=== PATIENT | male | born 1950 | race Caucasian/White ===

== ENCOUNTER 2016-10-19 07:21 | Inpatient (IN) | payer BC, MEDICARE ==
[2016-10-19] MEDS ORDERED: Diltiazem 25 MG/5 ML SDV IVPUSH ONE (07:38)
[2016-10-19] MEDS ORDERED: Aspirin 81 MG Tab.Chew PO ONE (07:39)
--- NOTE | 2016-10-19 07:43 | EDM.PDOC ---
ED HPI GENERAL MEDICAL PROBLEM - General Chief Complaint: Chest Pain Stated Complaint: CHEST PAIN Time Seen by Provider: 10/19/16 07:37 Source of Information: Reports: Patient History Limitations: Reports: No Limitations - History of Present Illness INITIAL COMMENTS - FREE TEXT/NARRATIVE: 66-year-old male presents the ED with diffuse central chest pain radiating through to his back the neck and across the upper shoulders posteriorly. States it came on about 0600 hours this morning and has persisted. He has not had any similar recurrences. He has known coronary disease requiring one stent in 2009. He remains on Plavix at this time. Denies any shortness of breath. Denies feeling lightheaded or dizzy. No previous episodes of atrial fib to his knowledge. Monitor reveals a to fibrillation with a rate of anywhere between 90 and 160 per minute. Onset: Today Onset Date: 10/19/16 Onset Time: 06:00 Duration: Hour(s): Location: Reports: Chest (With pain radiating to to the nape of the neck and upper back.) Quality: Reports: Ache, Pressure, Other (Radiating through to nape of neck and across the upper shoulders bilaterally.) Severity: Moderate Improves with: Reports: None Worsens with: Reports: None Context: Denies: Activity, Exercise, Lifting, Sick Contact, Trauma, Other Associated Symptoms: Reports: Chest Pain. 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: Other (see below) (None) Middle Chest Pain Score (Numeric/FACES): 8 - Related Data Allergies Allergy/AdvReac Type Severity Reaction Status Date / Time acetaminophen [From Tylenol] Allergy Nausea Verified 10/19/16 07:31 latex Allergy Hives Verified 10/19/16 07:31 peanut Allergy Hives Verified 10/19/16 07:31 Home Meds: Home Meds Albuterol [Ventolin HFA] 2 puff INH Q4H PRN 10/19/16 [History] Aspirin 81 mg PO DAILY 10/19/16 [History] Clopidogrel [Plavix] 75 mg PO DAILY 10/19/16 [History] Fluticasone/Salmeterol [Advair Diskus 250-50] 1 puff INH BID 10/19/16 [History] Metoprolol Succinate 25 mg PO DAILY 10/19/16 [History] Mometasone Furoate [Nasonex Worth] 1 spray BRIDGER DAILY 10/19/16 [History] Multivitamin [Multiple Vitamins] 1 each PO DAILY 10/19/16 [History] Pantoprazole [ProTONIX] 40 mg PO DAILY 10/19/16 [History] Valsartan/Hydrochlorothiazide [Diovan Hct 160-12.5 mg Tab] 1 each PO DAILY 10/19 [History] atorvaSTATin [Lipitor] 20 mg PO MOFR 10/19/16 [History] metFORMIN HCl [Metformin HCl] 1,000 mg PO BID 10/19/16 [History] predniSONE 10 mg PO BEDTIME 10/19/16 [History] predniSONE 20 mg PO WITHBREAKFAST 10/19/16 [History] Past Medical History HEENT History: Reports: Other (See Below) Other HEENT History: wears glasses Cardiovascular History: Reports: High Cholesterol, Hypertension Respiratory History: Reports: Asthma Musculoskeletal History: Reports: Other (See Below) Other Musculoskeletal History: polymyalgia Endocrine/Metabolic History: Reports: Diabetes, Type II - Past Surgical History HEENT Surgical History: Reports: Naso-Sinus Surgery Cardiovascular Surgical History: Reports: Coronary Artery Stent GI Surgical History: Reports: Cholecystectomy Social & Family History - Tobacco Use Smoking Status *Q: Never Smoker - Caffeine Use Caffeine Use: Reports: Soda - Recreational Drug Use Recreational Drug Use: No - Living Situation & Occupation Living situation: Reports: Occupation: Employed ED ROS GENERAL - Review of Systems Review Of Systems: See Below Constitutional: Denies: Fever, Chills, Malaise, Weakness, Fatigue, Decreased Appetite, Weight Loss HEENT: Reports: No Symptoms Respiratory: Denies: Shortness of Breath, Wheezing, Pleuritic Chest Pain, Cough Cardiovascular: Reports: Chest Pain (See history present illness a), Blood Pressure Problem, Palpitations (Aware of a few palpitations this morning.). Denies: Claudication, Dyspnea on Exertion, Edema, Lightheadedness, Orthopnea ( Mild hypertension) Endocrine: Reports: No Symptoms GI/Abdominal: Reports: No Symptoms : Reports: No Symptoms Musculoskeletal: Reports: Neck Pain, Shoulder Pain (Appreciates a pressure limit of his neck and across the upper shoulders bilaterally) Skin: Reports: No Symptoms Neurological: Reports: No Symptoms Psychiatric: Reports: No Symptoms ED EXAM, GENERAL - Physical Exam Exam: See Below Exam Limited By: No Limitations General Appearance: Alert, WD/WN, Anxious, Mild Distress Eye Exam: Bilateral Eye: Normal Inspection Throat/Mouth: Normal Inspection, Normal Lips, Normal Oropharynx Head: Atraumatic, Normocephalic Neck: Normal Inspection, Supple, Non-Tender, Full Range of Motion. No: Carotid Bruit, Lymphadenopathy (L), Lymphadenopathy (R), Thyromegaly Respiratory/Chest: No Respiratory Distress, Lungs Clear, Normal Breath Sounds, No Accessory Muscle Use, Chest Non-Tender Cardiovascular: No Edema, No Gallop, No JVD, No Murmur, No Rub, Irregularly Irregular (Rate as high as 160 per minute. Monitor reveals atrial fibrillation) Peripheral Pulses: 1+: Posterior Tibial (L), Posterior Tibial (R), Dorsalis Pedis (L), Dorsalis Pedis (R) GI/Abdominal: Normal Bowel Sounds, Soft, Non-Tender, No Organomegaly, No Distention, No Abnormal Bruit (Male) Exam: No Hernia Extremities: Normal Inspection, Normal Range of Motion, Non-Tender, No Pedal Edema, Normal Capillary Refill Neurological: Alert, Oriented, CN II-XII Intact, Normal Cognition, Normal Gait Psychiatric: Normal Affect, Normal Mood Skin Exam: Warm, Dry, Intact, Normal Color, No Rash EKG INTERPRETATION EKG Date: 10/19/16 Time: 07:30 Rhythm: a-fib (Rate 90-160 per minute) Rate (beats/min): 126 Angie: normal P-wave: absent QRS: normal ST-T: depressed (Is mild ST segment depression from V3 to V6 also noted in leads one and 2 and likely in lead 3. This could represent an early repolarization pattern but cannot rule out diffuse ischemia.) QT: normal Course - Vital Signs Last Recorded V/S: Last Vital Signs Temp 36.1 C 10/19/16 07:27 Pulse 128 H 10/19/16 07:27 Resp 18 10/19/16 07:27 BP 169/93 H 10/19/16 07:27 Pulse Ox 99 10/19/16 07:27 - Orders/Labs/Meds Orders: Active Orders 24 hr Category Date Time Status Admission Status [Patient Status] [ADT] Routine ADT 10/19/16 12:47 Ordered EKG Documentation Completion [RC] STAT Care 10/19/16 07:40 Active EKG Documentation Completion [RC] STAT Care 10/19/16 11:03 Active Oxygen Therapy [RC] ASDIRECTED Care 10/19/16 07:41 Active Peripheral IV Care [RC] . DIRECTED Care 10/19/16 12:49 Ordered Diltiazem 125 mg Med 10/19/16 07:49 Active Sodium Chloride 0.9% [Normal Saline] 100 ml IV NOW Sodium Chloride 0.9% [Normal Saline] 1,000 ml Med 10/19/16 07:45 Active IV ASDIRECTED Sodium Chloride 0.9% [Saline Flush] Med 10/19/16 12:47 Ordered 10 ml FLUSH ASDIRECTED PRN Peripheral IV Insertion Adult [OM.PC] Stat Oth 10/19/16 12:47 Ordered Medication Orders Sodium Chloride (Normal Saline) 1,000 mls @ 100 mls/hr IV ASDIRECTED EWELINA Last Admin: 10/19/16 07:42 Dose: 100 mls/hr Diltiazem HCl 125 mg/ Sodium (Chloride) 125 mls @ 10 mls/hr IV NOW STA PRN Reason: 10 MG/HR Stop: 10/19/16 20:18 Last Admin: 10/19/16 08:20 Dose: 10 mg/hr, 10 mls/hr Labs: Laboratory Tests 10/19/16 10/19/16 10/19/16 Range/Units 07:35 07:35 07:35 WBC 11.47 H (4.23-9.07) K/mm3 RBC 4.64 (4.63-6.08) M/mm3 Hgb 14.2 (13.7-17.5) gm/L Hct 41.9 (40.1-51.0) % MCV 90.3 (79.0-92.2) fl MCH 30.6 (25.7-32.2) pg MCHC 33.9 (32.2-35.5) g/dl RDW Std Deviation 46.2 H (35.1-43.9) fL Plt Count 312 (163-337) K/mm3 MPV 9.3 L (9.4-12.3) fl Neutrophils % (Manual) 83 H (40-60) % Band Neutrophils % Not Reportable Lymphocytes % (Manual) 11 L (20-40) % Monocytes % (Manual) 6 (2-10) % Eosinophils % (Manual) Not Reportable Basophils % (Manual) Not Reportable Platelet Estimate Adequate RBC Morph Comment Normal PT 10.7 (8.0-13.0) SECONDS INR 0.98 Sodium 137 (136-145) mEq/L Potassium 4.2 (3.5-5.1) mEq/L Chloride 99 (98-107) mEq/L Carbon Dioxide 25 (21-32) mEq/L Anion Gap 17.2 H (5-15) BUN 24 H (7-18) mg/dL Creatinine 1.2 (0.7-1.3) mg/dL Est Cr Clr Drug Dosing 62.16 mL/min Estimated GFR (MDRD) > 60 (>60) mL/min BUN/Creatinine Ratio 20.0 H (14-18) Glucose 305 H (80-115) mg/dL Calcium 9.4 (8.5-10.1) mg/dL Magnesium 2.0 (1.8-2.4) mg/dl Total Bilirubin 0.7 (0.2-1.0) mg/dL AST 13 L (15-37) U/L ALT 41 (16-63) U/L Alkaline Phosphatase 38 L (46-116) U/L CK-MB (CK-2) 3.6 (0-3.6) ng/ml Troponin I 0.019 (0.00-0.056) ng/mL Total Protein 7.4 (6.4-8.2) g/dl Albumin 3.7 (3.4-5.0) g/dl Globulin 3.7 gm/dL Albumin/Globulin Ratio 1.0 (1-2) TSH 3rd Generation 0.837 (0.358-3.74) uIU/mL 10/19/16 Range/Units 11:02 WBC (4.23-9.07) K/mm3 RBC (4.63-6.08) M/mm3 Hgb (13.7-17.5) gm/L Hct (40.1-51.0) % MCV (79.0-92.2) fl MCH (25.7-32.2) pg MCHC (32.2-35.5) g/dl RDW Std Deviation (35.1-43.9) fL Plt Count (163-337) K/mm3 MPV (9.4-12.3) fl Neutrophils % (Manual) (40-60) % Band Neutrophils % Lymphocytes % (Manual) (20-40) % Monocytes % (Manual) (2-10) % Eosinophils % (Manual) Basophils % (Manual) Platelet Estimate RBC Morph Comment PT (8.0-13.0) SECONDS INR Sodium (136-145) mEq/L Potassium (3.5-5.1) mEq/L Chloride (98-107) mEq/L Carbon Dioxide (21-32) mEq/L Anion Gap (5-15) BUN (7-18) mg/dL Creatinine (0.7-1.3) mg/dL Est Cr Clr Drug Dosing mL/min Estimated GFR (MDRD) (>60) mL/min BUN/Creatinine Ratio (14-18) Glucose (80-115) mg/dL Calcium (8.5-10.1) mg/dL Magnesium (1.8-2.4) mg/dl Total Bilirubin (0.2-1.0) mg/dL AST (15-37) U/L ALT (16-63) U/L Alkaline Phosphatase (46-116) U/L CK-MB (CK-2) 3.0 (0-3.6) ng/ml Troponin I 0.040 (0.00-0.056) ng/mL Total Protein (6.4-8.2) g/dl Albumin (3.4-5.0) g/dl Globulin gm/dL Albumin/Globulin Ratio (1-2) TSH 3rd Generation (0.358-3.74) uIU/mL Meds: Medications Generic Name Dose Route Start Last Admin Trade Name Freq PRN Reason Stop Dose Admin Sodium Chloride 1,000 mls @ 100 mls/hr 10/19/16 07:45 10/19/16 07:42 Normal Saline IV 100 mls/hr ASDIRECTED EWELINA Administration Diltiazem HCl 125 mg/ Sodium 125 mls @ 10 mls/hr 10/19/16 07:49 10/19/16 08: 20 Chloride IV 10/19/16 20:18 10 mg/hr NOW STA 10 mls/hr 10 MG/HR Administration Discontinued Medications Generic Name Dose Route Start Last Admin Trade Name Freq PRN Reason Stop Dose Admin Aspirin 324 mg 10/19/16 07:39 10/19/16 07:47 Aspirin PO 10/19/16 07:40 243 mg ONETIME ONE Administration Diltiazem HCl 10 mg 10/19/16 07:38 10/19/16 07:45 Diltiazem IVPUSH 10/19/16 07:39 10 mg ONETIME ONE Administration Diltiazem HCl 180 mg 10/19/16 11:25 10/19/16 11:38 Cardizem Cd PO 10/19/16 11:26 180 mg ONETIME ONE Administration Diltiazem HCl 125 mg/ Sodium 125 mls @ 10 mls/hr 10/19/16 07:45 Chloride IV ASDIRECTED EWELINA 10 MG/HR Ibutilide Fumarate 1 mg/ 60 mls @ 300 mls/hr 10/19/16 08:25 10/19/16 08:55 Sodium Chloride IV 10/19/16 08:36 300 mls/hr ONETIME ONE Administration Ibutilide Fumarate 1 mg/ 60 mls @ 300 mls/hr 10/19/16 09:25 10/19/16 09:58 Sodium Chloride IV 10/19/16 09:36 300 mls/hr ONETIME ONE Administration - Radiology Interpretation Free Text/Narrative:: 66-year-old male presents the ED with heaviness pressure sensation in the central chest radiating through to the nape of his neck and across the posterior aspect of both shoulders. Aware of this discomfort about 0600 hours this morning. Aware of a few palpitations in his chest. No lightheadedness no shortness of breath. No previous similar episodes. Patient has a history of coronary disease requiring one stent placement in 2009. He remains on Plavix at this time. Plan ECG confirms it fibrillation with a rate of 92 160 per minute. There is diffuse slight ST segment depression V3 to V6 one and leads 2 and possibly lead 3. Plan one view chest x-ray. He'll receive IV normal saline at 100 mils per hour. Cardizem 10 mg IV bolus and drip started at 10 mg per hour. Routine labs of course to include cardiac markers and BNP. - Re-Assessments/Exams Free Text/Narrative Re-Assessment/Exam: 10/19/16 08:07 heart rate is improved into the 90s after the 10 mg Cardizem bolus. His chest pain back pain 8 and nape of neck discomfort are completely gone. Cardizem drip is yet to be started. Chest x-ray reveals clear lung glass. Heart is borderline in size. 10/19/16 08:26 labs are back revealing a mildly elevated white count at 11.47 with a left shift of 83% neutrophils and no bands. Hemoglobin is 14.2 hematocrit of 41.9 platelets normal 312,000. Coags are normal. Sodium is 137 potassium is 4.2 anion gap is mildly elevated at 17.2. BUN is 24 glucose is moderately elevated at 305. TSH is normal at 0.837. Troponin is normal at 0.019 CK-MB fraction 3.6. His weight remains around 108 fibrillation. Drip has just been started. Going to the [facility] for converted back to sinus with Corvert. He will receive initial dose of 1 mg intravenously in the minibag over 15 minutes. 10/19/16 09:25 patient failed to convert back to sinus rhythm after the initial dose of Corvert. Will give second dose of 1 mg over 15 minutes IV. He remains in atrial fibrillation with a rate in the 80s cardiac Cardizem drip at 10 mg per hour. 10/19/16 10:30 patient has completed second dose of Corvert IV. He remained in nature fibrillation. He'll be monitored over the next half an hour then will make a decision as to disposition. 10/19/16 11:04 patient appears to be in atrial fibrillation. His rate is in the 60s to 70 range. BP is 120 on 64. We'll repeat his ECG and troponin CK-MB fractions. If his cardiac markers are normal he may be able to go home on oral Cardizem for rate control. 10/19/16 11:23 repeat ECG reveals a fibrillation with a rate of 58-88 per minute. There is early repolarization pattern but again noted in V2 and V3 with no true ST segment elevation to suggest an infarct. Previously noted diffuse ST segment depression in V3 to V6 and lead one has resolved after rate control. Will start him on oral Cardizem 180mg CD mg extended release daily. 10/19/16 11:[address] Hoffmann current hospitalist pediatric oncologist. He is accepted this patient and to the intensive care unit since he is still on a Cardizem drip. Insert is if he remains in atrial fibrillation he will require different anti-coagulation than Pradaxa. Second cardiac markers are slightly elevated as compared to the first. The troponin is now 0.040 and CK-MB fraction is a little lower at 3.0. Therefore unlikely to have experienced any cardiac muscle damage from the rapid rate. 10/19/16 12:49 this will be admitted to the intensive care at this time. He remains in atrial fibrillation with a rate of 74 per minute. BP is 119 on 72. Departure - Departure Time of Disposition: 12:50 Disposition: Admitted As Inpatient 66 Condition: fair Clinical Impression: Atrial fibrillation with RVR, Angina at rest, Volume depletion Forms: ED Department Discharge - My Orders Last 24 Hours: My Active Orders 10/19/16 07:40 EKG Documentation Completion [RC] STAT 10/19/16 07:41 Oxygen Therapy [RC] ASDIRECTED 10/19/16 07:45 Sodium Chloride 0.9% [Normal Saline] 1,000 ml IV ASDIRECTED 10/19/16 07:49 Diltiazem 125 mg Sodium Chloride 0.9% [Normal Saline] 100 ml IV NOW 10/19/16 11:03 EKG Documentation Completion [RC] STAT 10/19/16 12:47 Admission Status [Patient Status] [ADT] Routine Sodium Chloride 0.9% [Saline Flush] 10 ml FLUSH ASDIRECTED PRN Peripheral IV Insertion Adult [OM.PC] Stat 10/19/16 12:49 Peripheral IV Care [RC] . DIRECTED - Assessment/Plan Last 24 Hours: My Active Orders 10/19/16 07:40 EKG Documentation Completion [RC] STAT 10/19/16 07:41 Oxygen Therapy [RC] ASDIRECTED 10/19/16 07:45 Sodium Chloride 0.9% [Normal Saline] 1,000 ml IV ASDIRECTED 10/19/16 07:49 Diltiazem 125 mg Sodium Chloride 0.9% [Normal Saline] 100 ml IV NOW 10/19/16 11:03 EKG Documentation Completion [RC] STAT 10/19/16 12:47 Admission Status [Patient Status] [ADT] Routine Sodium Chloride 0.9% [Saline Flush] 10 ml FLUSH ASDIRECTED PRN Peripheral IV Insertion Adult [OM.PC] Stat 10/19/16 12:49 Peripheral IV Care [RC] . DIRECTED
[2016-10-19] MEDS ORDERED: Diltiazem 125 MG in Sodium Chloride 0.9% 100 ML IV SCH (07:45)
[2016-10-19] MEDS ORDERED: Sodium Chloride 0.9% 1,000 ML IV SCH (07:45)
[2016-10-19] MEDS ORDERED: Diltiazem 125 MG in Sodium Chloride 0.9% 100 ML IV STA (07:49)
--- NOTE | 2016-10-19 10:07 | CR ---
Chest: Portable view of the chest was obtained. Comparison: Previous chest x-ray of 03/27/12 is available, previous chest x-ray of 01/11/12 is also available. Heart size and mediastinum are normal. Lungs are clear. Bony structures are grossly intact. Slight degenerative endplate spurring is seen within the spine. Surgical clips seen within the upper abdomen. Impression: 1. Incidental findings. Nothing acute is identified on portable chest x-ray. Diagnostic code #2
[2016-10-19] MEDS ORDERED: Diltiazem 180 MG Cap.CD PO ONE (11:25)
--- NOTE | 2016-10-19 12:45 | PCM.HP ---
H&P History of Present Illness - General Date of Service: 10/19/16 Admit Problem/Dx: Atrial Fibrillation with RVR and Chest Pain Source of Information: Patient, Family, Provider, RN Notes Reviewed History Limitations: Reports: No Limitations - History of Present Illness Initial Comments - Free Text/Narative: This is a 66 yo pleasant elderly white male with past medical hx/o HTN, HLD, Asthma, PMR, and DM2 who comes in with complaints of chest pain that is pressure -achy like in nature with radiation to neck and shoulder that started about 0600 this am. He denies any previous hx/o it in the past. Patient carries a hx/o CAD for which he received a stent in 2009. He is currently on low dose ASA, Plavix, Statin and BB. His initial work up in ED shows a CBC that fairly remarkable for WBC of 11.47 and Neutrophils or 83%. INR is 0.98. His chemistry is significant for AG of 17.2 , BUN of 24, BS of 305, AST of 13 and Alk Phos of 38. His troponin x 2 are negative. His CXR shows no acute abnormal findings. His EKG shows Atrial fibrillation with a HR of 126 bpm. Patient received initial treatment in ED for rate control before he was sent to the floor for further management. He is full code. Middle Chest Pain Score (Numeric/FACES): 8 - Related Data Allergies/Adverse Reactions: Allergies Allergy/AdvReac Type Severity Reaction Status Date / Time acetaminophen [From Tylenol] Allergy Nausea Verified 10/19/16 07:31 latex Allergy Hives Verified 10/19/16 07:31 peanut Allergy Hives Verified 10/19/16 07:31 Home Medications: Home Meds Albuterol [Ventolin HFA] 2 puff INH Q4H PRN 10/19/16 [History] Aspirin 81 mg PO DAILY 10/19/16 [History] Clopidogrel [Plavix] 75 mg PO DAILY 10/19/16 [History] Fluticasone/Salmeterol [Advair Diskus 250-50] 1 puff INH BID 10/19/16 [History] Metoprolol Succinate 25 mg PO DAILY 10/19/16 [History] Mometasone Furoate [Nasonex [place]] 1 spray BRIDGER DAILY 10/19/16 [History] Multivitamin [Multiple Vitamins] 1 each PO DAILY 10/19/16 [History] Pantoprazole [ProTONIX] 40 mg PO DAILY 10/19/16 [History] Valsartan/Hydrochlorothiazide [Diovan Hct 160-12.5 mg Tab] 1 each PO DAILY 10/19 [History] atorvaSTATin [Lipitor] 20 mg PO MOFR 10/19/16 [History] metFORMIN HCl [Metformin HCl] 1,000 mg PO BID 10/19/16 [History] predniSONE 10 mg PO BEDTIME 10/19/16 [History] predniSONE 20 mg PO WITHBREAKFAST 10/19/16 [History] Past Medical History HEENT History: Reports: Other (See Below) Other HEENT History: wears glasses Cardiovascular History: Reports: High Cholesterol, Hypertension Respiratory History: Reports: Asthma Musculoskeletal History: Reports: Other (See Below) Other Musculoskeletal History: polymyalgia Endocrine/Metabolic History: Reports: Diabetes, Type II - Past Surgical History HEENT Surgical History: Reports: Naso-Sinus Surgery Cardiovascular Surgical History: Reports: Coronary Artery Stent GI Surgical History: Reports: Cholecystectomy Social & Family History - Tobacco Use Smoking Status *Q: Never Smoker - Caffeine Use Caffeine Use: Reports: Soda - Recreational Drug Use Recreational Drug Use: No - Living Situation & Occupation Living situation: Reports: Occupation: Employed H&P Review of Systems - Review of Systems: Review Of Systems: See Below General: Denies: Fever, Chills, Malaise, Weakness, Fatigue HEENT: Reports: No Symptoms Pulmonary: Denies: Shortness of Breath, Wheezing, Pleuritic Chest Pain Cardiovascular: Denies: Chest Pain, Palpitations, Dyspnea on Exertion, Claudication Gastrointestinal: Denies: Abdominal Pain, Constipation, Diarrhea, Decreased Appetite, Nausea, Vomiting Genitourinary: Reports: No Symptoms Musculoskeletal: Reports: No Symptoms Skin: Reports: No Symptoms Psychiatric: Denies: Confusion, Anxiety, Agitation, Hallucinations Neurological: Denies: Confusion, Dizziness, Seizure, Syncope, Difficulty Walking , Weakness, Gait Disturbance Hematologic/Lymphatic: Reports: No Symptoms Immunologic: Reports: No Symptoms Exam - Exam Exam: See Below - Vital Signs Vital Signs: Last Vital Signs Temp 36.1 C 10/19/16 07:27 Pulse 128 H 10/19/16 07:27 Resp 18 10/19/16 07:27 BP 169/93 H 10/19/16 07:27 Pulse Ox 99 10/19/16 07:27 Weight: 72.575 kg - Exam General: Alert, Oriented, Cooperative. No: Mild Distress HEENT: Conjunctiva Clear, EACs Clear, EOMI, Hearing Intact, Mucosa Moist & [place] , Nares Patent, Normal Nasal Septum, Posterior Pharynx Clear, Pupils Equal, Pupils Reactive, TMs Clear Neck: Supple, Trachea Midline Lungs: Clear to Auscultation, Normal Respiratory Effort Cardiovascular: Regular Rate, Regular Rhythm Abdomen: Normal Bowel Sounds, Soft. No: Organomegaly (Male) Exam: Deferred Rectal (Males) Exam: Deferred Back Exam: Normal Inspection, Decreased Range of Motion Extremities: Normal Inspection, Normal Pulses Peripheral Pulses: 2+: Posterior Tibial (L), Posterior Tibial (R), Dorsalis Pedis (L), Dorsalis Pedis (R) Skin: Warm, Dry, Intact Neuro Extensive - Mental Status: Oriented x3, Normal Cognition, Memory Intact Neuro Extensive - Motor, Sensory, Reflexes: CN II-XII Intact, Normal Gait Psychiatric: Alert, Normal Affect, Normal Mood - Patient Data Lab Results last 24 hrs: Laboratory Results - last 24 hr 10/19/16 10/19/16 10/19/16 Range/Units 07:35 07:35 07:35 WBC 11.47 H (4.23-9.07) K/mm3 RBC 4.64 (4.63-6.08) M/mm3 Hgb 14.2 (13.7-17.5) gm/L Hct 41.9 (40.1-51.0) % MCV 90.3 (79.0-92.2) fl MCH 30.6 (25.7-32.2) pg MCHC 33.9 (32.2-35.5) g/dl RDW Std Deviation 46.2 H (35.1-43.9) fL Plt Count 312 (163-337) K/mm3 MPV 9.3 L (9.4-12.3) fl Neutrophils % (Manual) 83 H (40-60) % Band Neutrophils % Not Reportable Lymphocytes % (Manual) 11 L (20-40) % Monocytes % (Manual) 6 (2-10) % Eosinophils % (Manual) Not Reportable Basophils % (Manual) Not Reportable Platelet Estimate Adequate RBC Morph Comment Normal PT 10.7 (8.0-13.0) SECONDS INR 0.98 Sodium 137 (136-145) mEq/L Potassium 4.2 (3.5-5.1) mEq/L Chloride 99 (98-107) mEq/L Carbon Dioxide 25 (21-32) mEq/L Anion Gap 17.2 H (5-15) BUN 24 H (7-18) mg/dL Creatinine 1.2 (0.7-1.3) mg/dL Est Cr Clr Drug Dosing 62.16 mL/min Estimated GFR (MDRD) > 60 (>60) mL/min BUN/Creatinine Ratio 20.0 H (14-18) Glucose 305 H (80-115) mg/dL Calcium 9.4 (8.5-10.1) mg/dL Magnesium 2.0 (1.8-2.4) mg/dl Total Bilirubin 0.7 (0.2-1.0) mg/dL AST 13 L (15-37) U/L ALT 41 (16-63) U/L Alkaline Phosphatase 38 L (46-116) U/L CK-MB (CK-2) 3.6 (0-3.6) ng/ml Troponin I 0.019 (0.00-0.056) ng/mL Total Protein 7.4 (6.4-8.2) g/dl Albumin 3.7 (3.4-5.0) g/dl Globulin 3.7 gm/dL Albumin/Globulin Ratio 1.0 (1-2) TSH 3rd Generation 0.837 (0.358-3.74) uIU/mL 10/19/16 Range/Units 11:02 WBC (4.23-9.07) K/mm3 RBC (4.63-6.08) M/mm3 Hgb (13.7-17.5) gm/L Hct (40.1-51.0) % MCV (79.0-92.2) fl MCH (25.7-32.2) pg MCHC (32.2-35.5) g/dl RDW Std Deviation (35.1-43.9) fL Plt Count (163-337) K/mm3 MPV (9.4-12.3) fl Neutrophils % (Manual) (40-60) % Band Neutrophils % Lymphocytes % (Manual) (20-40) % Monocytes % (Manual) (2-10) % Eosinophils % (Manual) Basophils % (Manual) Platelet Estimate RBC Morph Comment PT (8.0-13.0) SECONDS INR Sodium (136-145) mEq/L Potassium (3.5-5.1) mEq/L Chloride (98-107) mEq/L Carbon Dioxide (21-32) mEq/L Anion Gap (5-15) BUN (7-18) mg/dL Creatinine (0.7-1.3) mg/dL Est Cr Clr Drug Dosing mL/min Estimated GFR (MDRD) (>60) mL/min BUN/Creatinine Ratio (14-18) Glucose (80-115) mg/dL Calcium (8.5-10.1) mg/dL Magnesium (1.8-2.4) mg/dl Total Bilirubin (0.2-1.0) mg/dL AST (15-37) U/L ALT (16-63) U/L Alkaline Phosphatase (46-116) U/L CK-MB (CK-2) 3.0 (0-3.6) ng/ml Troponin I 0.040 (0.00-0.056) ng/mL Total Protein (6.4-8.2) g/dl Albumin (3.4-5.0) g/dl Globulin gm/dL Albumin/Globulin Ratio (1-2) TSH 3rd Generation (0.358-3.74) uIU/mL Result Diagrams: 10/19/16 07:35 10/19/16 07:35 EKG INTERPRETATION EKG Date: 10/19/16 Time: 07:28 Rhythm: a-fib Rate (beats/min): 126 EKG Interpretation Comments: Diffuse mild ST depression and early repolarization vs ischemia *Q Meaningful Use (ADM) - VTE *Q VTE Criteria *Q: - Stroke *Q Stroke Criteria *Q: - AMI *Q AMI Criteria *Q: Problem List Initiated/Reviewed/Updated: Yes Orders Last 24hrs: Active Orders 24 hr Category Date Time Status EKG Documentation Completion [RC] STAT Care 10/19/16 07:40 Active EKG Documentation Completion [RC] STAT Care 10/19/16 11:03 Active Oxygen Therapy [RC] ASDIRECTED Care 10/19/16 07:41 Active Diltiazem 125 mg Med 10/19/16 07:49 Active Sodium Chloride 0.9% [Normal Saline] 100 ml IV NOW Sodium Chloride 0.9% [Normal Saline] 1,000 ml Med 10/19/16 07:45 Active IV ASDIRECTED Medication Orders Sodium Chloride (Normal Saline) 1,000 mls @ 100 mls/hr IV ASDIRECTED EWELINA Last Admin: 10/19/16 07:42 Dose: 100 mls/hr Diltiazem HCl 125 mg/ Sodium (Chloride) 125 mls @ 10 mls/hr IV NOW STA PRN Reason: 10 MG/HR Stop: 10/19/16 20:18 Last Admin: 10/19/16 08:20 Dose: 10 mg/hr, 10 mls/hr Assessment/Plan Comment:: Assessment/Plan: Acute: New Onset of Atrial Fibrillation with RVR - HR in the 90-160s - No similar episode in the past - Responded to Cardizem - Failed attempt to convert him with corvert x 2 in ED - [id number] Score is 4 (4% Yearly Risk of Stroke) w/o Anticoagulation - Offered Warfarin vs DOACs, agreed to eliquis - No recent or hx/o GI, Neurologic, Spinal or Any kind of Major Bleed - HAS BLED Score: 3 points (at high risk for major bleeding) Chest Pain - Likely angina induced by uncontrolled HR from Atrial Fibrillation - He does not chronic chest pain or angina - Troponin x 2 both negative - EKG shows no acute ST-T wave changes - He is now symptom free - He carries a hx/o CAD with stent x1 in 2010: He is on BB, ASA/Plavix and Statin Chronic: HTN HLD CAD/NC S/p stent x 1 in 2009 Asthma PMR DM2 Plan: Admit to ICU Resume Home Meds Thyroid Panel Will change home dose Metoprolol 25 mg po to BID Start Cardizem 180 mg po Daily in AM Heparin 5000 units SubQ x1 then start elqiuis 5 mg po at 2100 tonight for stroke /dvt prophylaxis Will d/c Plavix and keep ASA since his stent placement was 6-7 years ago Repeat EKG in AM SW/CM for d/c planning Code Status: 1
[2016-10-19] MEDS ORDERED: Sodium Chloride 0.9% 10 ML Syringe FLUSH PRN (12:47)
[2016-10-19] MEDS ORDERED: Albuterol 6.7 GM Inhaler INH PRN (14:30)
[2016-10-19] MEDS ORDERED: Metoprolol Tartrate 5 MG/5 ML SDV IVPUSH PRN (15:08)
[2016-10-19] MEDS ORDERED: hydrALAZINE 20 MG/ML SDV IVPUSH PRN (15:08)
[2016-10-19] MEDS ORDERED: Acetaminophen/HYDROcodone 325-5 MG Tab PO PRN (15:12)
[2016-10-19] MEDS ORDERED: Temazepam 15 MG Cap PO PRN (15:12)
[2016-10-19] MEDS ORDERED: Acetaminophen 325 MG Tab PO PRN (15:12)
[2016-10-19] MEDS ORDERED: LORazepam 2 MG/ML MDV IV PRN (15:12)
[2016-10-19] MEDS ORDERED: Ondansetron 4 MG/2 ML SDV IV PRN (15:12)
[2016-10-19] MEDS ORDERED: Bisacodyl 5 MG Tab PO PRN (15:12)
[2016-10-19] MEDS ORDERED: Polyethylene Glycol 3350 Powder 17 GM Packet PO PRN (15:12)
[2016-10-19] MEDS ORDERED: Promethazine 12.5 MG in Sodium Chloride 0.9% 50 ML IV PRN (15:12)
[2016-10-19] MEDS ORDERED: HYDROmorphone 0.5 MG/0.5 ML Syringe IVPUSH PRN (15:12)
[2016-10-19] MEDS ORDERED: Albuterol/Ipratropium 3.0-0.5 MG/3 ML Neb Soln NEB PRN (15:12)
[2016-10-19] MEDS ORDERED: Docusate Sodium 100 MG Cap PO PRN (15:12)
[2016-10-19] MEDS ORDERED: Heparin Sodium 5,000 Units/ML Vial IVPUSH ONE (15:18)
[2016-10-19] MEDS: Metoprolol Succinate 25 MG Tab.ER PO SCH (20:04)
[2016-10-19] MEDS: metFORMIN 500 MG Tab PO SCH (20:10)
[2016-10-19] MEDS: Fluticasone/Salmeterol 250-50 MCG Inhalation Powder 14/Diskus INH SCH (20:52)
[2016-10-19] MEDS ORDERED: Apixaban 5 MG Tab PO SCH (21:00)
[2016-10-19] MEDS ORDERED: predniSONE 10 MG Tab PO SCH (21:00)
--- NOTE | 2016-10-19 22:00 | PCM.SN ---
- Free Text/Narrative Note: Patient converted to sinus rhythm with most recent ekg taken at 21:44. We will hold off eliquis and cardizem in am. Continue Metoprolol 25 mg po BID. If he continues to remain in SR, he is likely to leave early in am.
[2016-10-20] MEDS ORDERED: predniSONE 20 MG Tab PO SCH (07:00)
--- NOTE | 2016-10-20 07:57 | PCM.SN ---
- Free Text/Narrative Note: Repeat EKG this am shows sinus rhythm.
[2016-10-20] MEDS: metFORMIN 500 MG Tab PO SCH (08:06)
[2016-10-20] MEDS: Fluticasone/Salmeterol 250-50 MCG Inhalation Powder 14/Diskus INH SCH (08:06)
[2016-10-20] MEDS: Metoprolol Succinate 25 MG Tab.ER PO SCH (08:07)
--- NOTE | 2016-10-20 08:10 | PCM.DCSUM1 ---
Discharge Summary - Hospital Course Brief History: This is a 66 yo pleasant elderly white male with past medical hx/ o HTN, HLD, Asthma, PMR, and DM2 who comes in with complaints of chest pain that is pressure-achy like in nature with radiation to neck and shoulder and was admitted for chest pain and new onset of atrial fibrillation with rvr. - Discharge Data Discharge Date: 10/20/16 Discharge Disposition: Home, Self-Care 01 Condition: Good - Patient Summary/Data Operative Procedure(s) Performed: None Complications: None Consults: Consultations 10/19/16 15:13 Consult to Case Management [CONS] Routine Consult to Comfort Filler [CONS] Routine Hospital Course: Patient was primarily admitted for atrial fibrillation with rvr. All work up showed no clear etiology of his new onset a-fib. Attempts were made to convert him with ibutilide in ED but w/o any success. However he chemically converted with cardizem while he was in the unit. As for his chest pain, we felt this was related to his atrial fibrillation with fast ventricular rate. His cardiac work up showed no LA. Cardiac enzymes and EKG series were all benign. He is to continue with his home regimen of ASA, BB and Statin. On this admission, we decided to stop his plavix but continue his low dose ASA. His cardiac stent was placed back in 2009 and we felt DAPT would no longer indicated. Patient does not suffer chronic or intermittent angina to warrant continuation of it. Overall, patient has done really well since admission. His hospital course is uncomplicated. The rest of his chronic medical illness remained stable during this admission. No additional rate control medications or anticags was prescribed to him on discharge. Patient is now ready for discharge. He was advised to resume his home medications. He is to call his doctor for any questions or concerns. He was further advised to follow up with his PCP in 1-2 weeks if needed. - Patient Instructions Diet: Usual Diet as Tolerated, Diabetic Diet Activity: As Tolerated Driving: May Drive Today Showering/Bathing: May Shower Notify Provider of: Increased Pain, Nausea and/or Vomiting Other/Special Instructions: - Please resume all home meds as directed. - Resume normal daily activities w/o restrictions. - Call your doctor for any questions or concerns. - Follow up with your doctor in 1-2 weeks if needed - Discharge Plan Home Medications: Home Meds Albuterol [Ventolin HFA] 2 puff INH Q4H PRN 10/19/16 [History] Aspirin 81 mg PO DAILY 10/19/16 [History] Fluticasone/Salmeterol [Advair Diskus 250-50] 1 puff INH BID 10/19/16 [History] Metoprolol Succinate 25 mg PO DAILY 10/19/16 [History] Mometasone Furoate [Nasonex [place]] 1 spray BRIDGER DAILY 10/19/16 [History] Multivitamin [Multiple Vitamins] 1 each PO DAILY 10/19/16 [History] Pantoprazole [ProTONIX] 40 mg PO DAILY 10/19/16 [History] Valsartan/Hydrochlorothiazide [Diovan Hct 160-12.5 mg Tab] 1 each PO DAILY 10/19 [History] atorvaSTATin [Lipitor] 20 mg PO MOFR 10/19/16 [History] metFORMIN HCl [Metformin HCl] 1,000 mg PO BID 10/19/16 [History] predniSONE 10 mg PO BEDTIME 10/19/16 [History] predniSONE 20 mg PO WITHBREAKFAST 10/19/16 [History] Patient Handouts: Atrial Fibrillation, [id number] Referrals: Homer Galloway MD [Primary Care Provider] - - Discharge Summary/Plan Comment DC Time >30 min.: Yes (45 mins) Discharge Summary/Plan Comment: Discharge to Home - General Info Date of Service: 10/20/16 Admission Dx/Problem (Free Text: Atrial Fibrillation with RVR and Chest Pain Subjective Update: Follow Up Functional Status: Reports: pain controlled, tolerating diet, ambulating, urinating. Denies: new symptoms - Review of Systems General: Denies: Fever, Weakness, Fatigue, Malaise HEENT: Reports: no symptoms Pulmonary: Denies: shortness of breath Cardiovascular: Denies: Chest Pain, Palpitations, Dyspnea on Exertion, Edema, Lightheadedness Gastrointestinal: Denies: Abdominal pain, Nausea, Vomiting Genitourinary: Reports: no symptoms Musculoskeletal: Reports: no symptoms Skin: Reports: no symptoms Neurological: Denies: Confusion, Syncope, Difficulty Walking, Weakness, Gait Disturbance Psychiatric: Denies: no symptoms, confusion, depression, mood lability, anxiety , agitation, hallucinations - Patient Data Vitals - Most Recent: Last Vital Signs Temp 36.4 C 05/20/17 04:00 Pulse 59 L 10/20/16 04:00 Resp 15 10/20/16 04:00 BP 105/61 10/20/16 04:00 Pulse Ox 98 10/20/16 04:00 Weight - Most Recent: 75.614 kg I&O - Last 24 hours: Intake & Output 10/19/16 10/20/16 10/20/16 22:59 06:59 14:59 Intake Total 800 625 Output Total 1400 725 Balance -600 -100 Lab Results - Last 24 hrs: Laboratory Results - last 24 hr 10/20/16 10/20/16 Range/Units 04:28 04:28 WBC 9.87 H (4.23-9.07) K/mm3 RBC 4.02 L (4.63-6.08) M/mm3 Hgb 12.6 L (13.7-17.5) gm/L Hct 36.8 L (40.1-51.0) % MCV 91.5 (79.0-92.2) fl MCH 31.3 (25.7-32.2) pg MCHC 34.2 (32.2-35.5) g/dl RDW Std Deviation 46.6 H (35.1-43.9) fL Plt Count 279 (163-337) K/mm3 MPV 9.0 L (9.4-12.3) fl Neut % (Auto) 78.6 H (34.0-67.9) % Lymph % (Auto) 13.5 L (21.8-53.1) % [place] % (Auto) 7.2 (5.3-12.2) % Eos % (Auto) 0.2 L (0.8-7.0) Baso % (Auto) 0.1 (0.1-1.2) % Neut # (Auto) 7.76 H (1.78-5.38) K/mm3 Lymph # (Auto) 1.33 (1.32-3.57) K/mm3 [place] # (Auto) 0.71 (0.30-0.82) K/mm3 Eos # (Auto) 0.02 L (0.04-0.54) K/mm3 Baso # (Auto) 0.01 (0.01-0.08) K/mm3 Sodium 138 (136-145) mEq/L Potassium 4.5 (3.5-5.1) mEq/L Chloride 103 (98-107) mEq/L Carbon Dioxide 28 (21-32) mEq/L Anion Gap 11.5 (5-15) BUN 19 H (7-18) mg/dL Creatinine 1.0 (0.7-1.3) mg/dL Est Cr Clr Drug Dosing 75.03 mL/min Estimated GFR (MDRD) > 60 (>60) mL/min BUN/Creatinine Ratio 19.0 H (14-18) Glucose 204 H (80-115) mg/dL Calcium 8.6 (8.5-10.1) mg/dL Magnesium 2.1 (1.8-2.4) mg/dl CK-MB (CK-2) 2.1 (0-3.6) ng/ml Troponin I 0.031 (0.00-0.056) ng/mL Free T4 0.80 (0.76-1.46) ng/dL Med Orders - Current: Current Medications Acetaminophen (Tylenol) 650 mg PO Q4H PRN PRN Reason: Pain (Mild 1-3)/fever Hydrocodone Bitart/Acetaminophen ([place] 325-5 Mg) 1 tab PO Q4H PRN PRN Reason: Pain (moderate 4-6) Albuterol (Proventil Hfa) 0 gm INH Q4H PRN PRN Reason: Dyspnea Albuterol/Ipratropium (Duoneb 3.0-0.5 Mg/3 Ml) 3 ml NEB Q4H PRN PRN Reason: Shortness Of Breath/wheezing Aspirin (Aspirin) 81 mg PO DAILY [facility] Bisacodyl (Dulcolax) 5 mg PO DAILY PRN PRN Reason: Constipation Docusate Sodium (Colace) 100 mg PO BID PRN PRN Reason: Constipation Flunisolide (Nasalide Nasal [place]) 0 ml BRIDGER Q12H EWELINA Hydralazine HCl (Apresoline) 20 mg IVPUSH Q4H PRN PRN Reason: Hypertension Hydrochlorothiazide (Hydrochlorothiazide) 12.5 mg PO DAILY [facility]ELINA Hydromorphone HCl (Dilaudid) 0.25 mg IVPUSH Q2H PRN PRN Reason: Pain (severe 7-10) Sodium Chloride (Normal Saline) 1,000 mls @ 100 mls/hr IV ASDIRECTED [facility] Last Admin: 10/19/16 07:42 Dose: 100 mls/hr Promethazine HCl 12.5 mg/ (Sodium Chloride) 50.5 mls @ 100 mls/hr IV Q6H PRN PRN Reason: Nausea/Vomiting Lorazepam (Ativan) 1 mg IV Q6H PRN PRN Reason: Anxiety Losartan Potassium (Cozaar) 100 mg PO DAILY [facility] Metformin HCl (Glucophage) 1,000 mg PO BID [facility] Last Admin: 10/19/16 20:10 Dose: 1,000 mg Metoprolol Succinate (Toprol Xl) 25 mg PO BID [facility] Last Admin: 10/19/16 20:04 Dose: 25 mg Metoprolol Tartrate (Lopressor) 5 mg IVPUSH Q4H PRN PRN Reason: Tachycardia Multivitamins (Thera) 1 each PO DAILY [facility] Ondansetron HCl (Zofran) 4 mg IV Q6H PRN PRN Reason: Nausea/Vomiting Polyethylene Glycol (Miralax) 17 gm PO DAILY PRN PRN Reason: Constipation Prednisone (Prednisone) 10 mg PO BEDTIME [facility] Last Admin: 10/19/16 20:07 Dose: 10 mg Prednisone (Prednisone) 20 mg PO WITHBREAKFAST [facility] Last Admin: 10/20/16 07:50 Dose: 20 mg Fluticasone/Salmeterol (Advair Diskus 250-50) 1 puff INH BID [facility] Last Admin: 10/19/16 20:52 Dose: 1 puff Senna/Docusate Sodium (Senna Plus) 1 tab PO BID PRN PRN Reason: Constipation Simvastatin (Zocor) 20 mg PO MOFR [facility] Sodium Chloride (Saline Flush) 10 ml FLUSH ASDIRECTED PRN PRN Reason: Keep Vein Open Temazepam (Restoril) 15 mg PO BEDTIME PRN PRN Reason: Sleep Discontinued Medications Apixaban (Eliquis) 5 mg PO BID [facility] Last Admin: 10/19/16 20:03 Dose: 5 mg Aspirin (Aspirin) 324 mg PO ONETIME ONE Stop: 10/19/16 07:40 Last Admin: 10/19/16 07:47 Dose: 243 mg Clopidogrel Bisulfate (Plavix) 75 mg PO DAILY [facility] Diltiazem HCl (Diltiazem) 10 mg IVPUSH ONETIME ONE Stop: 10/19/16 07:39 Last Admin: 10/19/16 07:45 Dose: 10 mg Diltiazem HCl (Cardizem Cd) 180 mg PO ONETIME ONE Stop: 10/19/16 11:26 Last Admin: 10/19/16 11:38 Dose: 180 mg Diltiazem HCl (Cardizem Cd) 180 mg PO DAILY [facility] Heparin Sodium (Porcine) (Heparin Sodium) 5,000 units IVPUSH ONETIME ONE Stop: 10/19/16 15:19 Last Admin: 10/19/16 16:28 Dose: 5,000 units Heparin Sodium (Porcine) (Heparin Sodium) 5,000 units SUBCUT Q12HR [facility] Diltiazem HCl 125 mg/ Sodium (Chloride) 125 mls @ 10 mls/hr IV ASDIRECTED EWELINA PRN Reason: 10 MG/HR Diltiazem HCl 125 mg/ Sodium (Chloride) 125 mls @ 10 mls/hr IV NOW STA PRN Reason: 10 MG/HR Stop: 10/19/16 20:18 Last Admin: 10/19/16 08:20 Dose: 10 mg/hr, 10 mls/hr Ibutilide Fumarate 1 mg/ (Sodium Chloride) 60 mls @ 300 mls/hr IV ONETIME ONE Stop: 10/19/16 08:36 Last Admin: 10/19/16 08:55 Dose: 300 mls/hr Ibutilide Fumarate 1 mg/ (Sodium Chloride) 60 mls @ 300 mls/hr IV ONETIME ONE Stop: 10/19/16 09:36 Last Admin: 10/19/16 09:58 Dose: 300 mls/hr Metoprolol Succinate (Toprol Xl) 25 mg PO DAILY [facility]EL[facility] - Exam General: Reports: alert, oriented, cooperative, no acute distress HEENT: Reports: Pupils equal, Pupils reactive, EOMI, Mucous membr. moist/pink Neck: Reports: supple, trachea midline, no JVD, no thyromegaly Lungs: Reports: Clear to auscultation, Normal respiratory effort Cardiovascular: Reports: Regular Rate, Regular Rhythm Abdomen: Reports: bowel sounds present, soft, no tenderness, no distension (Male) Exam: Deferred Rectal (Males) Exam: Deferred Back Exam: Reports: Normal Inspection, Decreased Range of Motion Extremities: Reports: no edema, normal pulses, no tenderness/swelling, no clubbing, no cyanosis, no calf tenderness Skin: Reports: warm, dry, intact Neurological: Reports: no new focal deficit Psy/Mental Status: Reports: alert, normal affect, normal mood *Q Meaningful Use (DIS) - VTE *Q VTE Criteria *Q: - Stroke *Q Stroke Criteria *Q: - AMI *Q AMI Criteria *Q:
[2016-10-20 08:44] VITALS: BP 123/66
[2016-10-20] MEDS ORDERED: Heparin Sodium 5,000 Units/ML Vial SUBCUT SCH (09:00)
[2016-10-20] MEDS ORDERED: Multivitamins,Therapeutic Tab PO SCH (09:00)
[2016-10-20] MEDS ORDERED: Hydrochlorothiazide 12.5 MG Cap PO SCH (09:00)
[2016-10-20] MEDS ORDERED: Diltiazem 180 MG Cap.CD PO SCH (09:00)
[2016-10-20] MEDS ORDERED: Aspirin 81 MG Tab.Chew PO SCH (09:00)
[2016-10-20] MEDS ORDERED: Clopidogrel 75 MG Tab PO SCH (09:00)
[2016-10-20] MEDS ORDERED: Metoprolol Succinate 25 MG Tab.ER PO SCH (09:00)
[2016-10-20] MEDS ORDERED: Losartan 100 MG Tab PO SCH (09:00)
[2016-10-22] MEDS ORDERED: Simvastatin 20 MG Tab PO SCH (09:00)
== END 2016-10-20 08:25 | disposition home or self-care (01) | DRG 201 ==
LOC: JD.ED 07:21 → JD.ICU 12:47
PROVIDERS: ADMIT Internal Medicine; ATTEND Internal Medicine
DX: I48.91 Unspecified atrial fibrillation (principal); I20.9 Angina pectoris, unspecified; I11.9 Hypertensive heart disease without heart failure; E86.9 Volume depletion, unspecified; Z95.5 Presence of coronary angioplasty implant and graft; E78.00 Pure hypercholesterolemia, unspecified; J45.909 Unspecified asthma, uncomplicated; E11.9 Type 2 diabetes mellitus without complications; Z79.84 Long term (current) use of oral hypoglycemic drugs; M35.3 Polymyalgia rheumatica; Z79.2 Long term (current) use of antibiotics; Z79.82 Long term (current) use of aspirin; Z79.899 Other long term (current) drug therapy; Z88.8 Allergy status to other drugs, medicaments and biological substances; Z88.6 Allergy status to analgesic agent; Z91.040 Latex allergy status; E78.5 Hyperlipidemia, unspecified; I25.2 Old myocardial infarction
CPT/HCPCS: 36415; 71010; 71010-26; 80048; 80053; 82553; 82962; 83735; 83880; 84439; 84443; 84484; 85025; 85610; 93005; 94664; 94760; 96361; 96365; 96366; 96368; 96376; 99285; 99285-25; A9270-GY; J1644; J1742; J3490; J7030; J7040; J7050

== ENCOUNTER 2017-12-05 10:44 | Emergency (ER) | payer BC, MEDICARE ==
[2017-12-05] MEDS ORDERED: Sodium Chloride 0.9% 10 ML Syringe FLUSH PRN (10:56)
[2017-12-05 11:01] VITALS: BP 146/78
[2017-12-05] MEDS ORDERED: Sodium Chloride 0.9% 1,000 ML IV ONE (11:02)
--- NOTE | 2017-12-05 11:02 | EDM.PDOC ---
ED HPI GENERAL MEDICAL PROBLEM - General Chief Complaint: Neurological Problem Stated Complaint: R SIDE OF FACE NUMB Time Seen by Provider: 12/05/17 10:59 Source of Information: Reports: Patient History Limitations: Reports: No Limitations - History of Present Illness INITIAL COMMENTS - FREE TEXT/NARRATIVE: 67-year-old male presents for evaluation and treatment of right-sided facial numbness. Reports that he woke around 6 AM this morning with right-sided facial numbness. He did not have any last night when he went to bed, around 22:30. He denies any headaches, chest pain, shortness of breath, weakness, lightheadedness or dizziness. No recent cough, cold, fevers or chills. patient is a diabetic. He states that he has been fasting for am labs. Patient has also has paroxysmal A. fib. H currently on xeralto for this. No history of any previous strokes. No history of any blood clot. Primary care provider is Dr. Kong. - Related Data Allergies Allergy/AdvReac Type Severity Reaction Status Date / Time acetaminophen [From Tylenol] Allergy Nausea Verified 12/05/17 10:53 latex Allergy Hives Verified 12/05/17 10:53 peanut Allergy Hives Verified 12/05/17 10:53 Home Meds: Home Meds Albuterol [Ventolin HFA] 2 puff INH Q4H PRN 10/19/16 [History] Aspirin 81 mg PO DAILY 10/19/16 [History] Fluticasone/Salmeterol [Advair Diskus 250-50] 1 puff INH BID 10/19/16 [History] Metoprolol Succinate 25 mg PO DAILY 10/19/16 [History] Mometasone Furoate [Nasonex [place]] 1 spray BRIDGER DAILY 10/19/16 [History] Multivitamin [Multiple Vitamins] 1 each PO DAILY 10/19/16 [History] Pantoprazole [ProTONIX] 40 mg PO DAILY 10/19/16 [History] Valsartan/Hydrochlorothiazide [Diovan Hct 160-12.5 mg Tab] 1 each PO DAILY 10/19 [History] atorvaSTATin [Lipitor] 20 mg PO MOFR 10/19/16 [History] metFORMIN HCl [Metformin HCl] 1,000 mg PO BID 10/19/16 [History] predniSONE 10 mg PO BEDTIME 10/19/16 [History] predniSONE 20 mg PO WITHBREAKFAST 10/19/16 [History] Past Medical History HEENT History: Reports: Other (See Below) Other HEENT History: wears glasses Cardiovascular History: Reports: High Cholesterol, Hypertension Respiratory History: Reports: Asthma Musculoskeletal History: Reports: Other (See Below) Other Musculoskeletal History: polymyalgia Endocrine/Metabolic History: Reports: Diabetes, Type II - Past Surgical History HEENT Surgical History: Reports: Naso-Sinus Surgery Cardiovascular Surgical History: Reports: Coronary Artery Stent GI Surgical History: Reports: Cholecystectomy Social & Family History - Family History Family Medical History: Noncontributory - Caffeine Use Caffeine Use: Reports: Soda - Living Situation & Occupation Living situation: Reports: Occupation: Employed ED ROS GENERAL - Review of Systems Review Of Systems: See Below Constitutional: Denies: Fever, Chills, Weakness HEENT: Denies: Ear Pain Respiratory: Denies: Shortness of Breath, Cough Cardiovascular: Denies: Chest Pain, Lightheadedness GI/Abdominal: Denies: Nausea, Vomiting Neurological: Reports: Numbness (right face ). Denies: Headache ED EXAM, NEURO - Physical Exam Exam: See Below Exam Limited By: No Limitations General Appearance: Alert, WD/WN, No Apparent Distress Eye Exam: Bilateral Eye: EOMI, Normal Inspection, PERRL Ears: Normal External Exam, Normal Canal, Hearing Grossly Normal, Normal TMs Nose: Normal Inspection Throat/Mouth: Normal Inspection, Normal Lips, Normal Voice, No Airway Compromise Neck: Normal Inspection, Full Range of Motion Respiratory/Chest: No Respiratory Distress, Lungs Clear, Normal Breath Sounds Cardiovascular: Normal Peripheral Pulses, Regular Rate, Rhythm, No Murmur Neurological: Alert, Normal Mood/Affect, Normal Dorsiflexion, CN II-XII Intact, Normal Plantar Flexion, Oriented x 3, Other (smile is symmetric, district captain 5/5 bilaterally, dorsiflexion and plantarflexion 5/5 bilaterally; no upper or lower extremity drift, no slurred speech; reports sensation to light touch to the bilteral face). No: Straight Leg Raise (L), Straight Leg Raise (R) Extremities: Normal Inspection, Normal Range of Motion Psychiatric: Normal Affect, Normal Mood Skin Exam: Warm, Dry, Normal Color EKG INTERPRETATION EKG Date: 12/05/17 Time: 11:05 Rhythm: NSR Rate (Beats/Min): 65 [place]: Normal P-Wave: Present QRS: Normal ST-T: Normal QT: Normal Comparison: No Change EKG Interpretation Comments: NSR at 65 bpm. No changes from October 20, 2016 EKG. Reviewed by myself and Dr. Rodriguez. Course - Vital Signs Last Recorded V/S: Last Vital Signs Temp 98.5 F 12/05/17 10:53 Pulse 68 12/05/17 10:53 Resp 13 12/05/17 10:53 BP 146/78 H 12/05/17 10:53 Pulse Ox 99 12/05/17 10:53 - Orders/Labs/Meds Labs: Laboratory Tests 12/05/17 12/05/17 12/05/17 Range/Units 10:53 11:12 11:12 WBC 8.72 (4.23-9.07) K/mm3 RBC 4.24 L (4.63-6.08) M/mm3 Hgb 12.0 L (13.7-17.5) gm/L Hct 37.4 L (40.1-51.0) % MCV 88.2 (79.0-92.2) fl MCH 28.3 (25.7-32.2) pg MCHC 32.1 L (32.2-35.5) g/dl RDW Std Deviation 46.0 H (35.1-43.9) fL Plt Count 338 H (163-337) K/mm3 MPV 9.4 (9.4-12.3) fl Neut % (Auto) 68.7 H (34.0-67.9) % Lymph % (Auto) 19.4 L (21.8-53.1) % [place] % (Auto) 8.6 (5.3-12.2) % Eos % (Auto) 2.9 (0.8-7.0) Baso % (Auto) 0.3 (0.1-1.2) % Neut # (Auto) 5.99 H (1.78-5.38) K/mm3 Lymph # (Auto) 1.69 (1.32-3.57) K/mm3 [place] # (Auto) 0.75 (0.30-0.82) K/mm3 Eos # (Auto) 0.25 (0.04-0.54) K/mm3 Baso # (Auto) 0.03 (0.01-0.08) K/mm3 PT 12.4 H (9.5-12.1) SECONDS INR 1.14 APTT 31 (24-31) SECONDS Sodium (136-145) mEq/L Potassium (3.5-5.1) mEq/L Chloride (98-107) mEq/L Carbon Dioxide (21-32) mEq/L Anion Gap (5-15) BUN (7-18) mg/dL Creatinine (0.7-1.3) mg/dL Est Cr Clr Drug Dosing mL/min Estimated GFR (MDRD) (>60) mL/min BUN/Creatinine Ratio (14-18) Glucose (80-115) mg/dL POC Glucose 103 (80-115) mg/dL Calcium (8.5-10.1) mg/dL Magnesium (1.8-2.4) mg/dl Total Bilirubin (0.2-1.0) mg/dL AST (15-37) U/L ALT (16-63) U/L Alkaline Phosphatase (46-116) U/L Troponin I (0.00-0.056) ng/mL Total Protein (6.4-8.2) g/dl Albumin (3.4-5.0) g/dl Globulin gm/dL Albumin/Globulin Ratio (1-2) Urine Color (Yellow) Urine Appearance (Clear) Urine pH (5.0-8.0) Ur Specific [place] (1.005-1.030) Urine Protein (Negative) Urine Glucose (UA) (Negative) Urine Ketones (Negative) Urine Occult Blood (Negative) Urine Nitrite (Negative) Urine Bilirubin (Negative) Urine Urobilinogen (0.2-1.0) Ur Leukocyte Esterase (Negative) Urine RBC (0-5) /hpf Urine WBC (0-5) /hpf Ur Epithelial Cells (0-5) /hpf Urine Bacteria (FEW) /hpf Urine Mucus (FEW) /hpf Ethyl Alcohol (0.00) gm% 12/05/17 12/05/17 Range/Units 11:12 11:42 WBC (4.23-9.07) K/mm3 RBC (4.63-6.08) M/mm3 Hgb (13.7-17.5) gm/L Hct (40.1-51.0) % MCV (79.0-92.2) fl MCH (25.7-32.2) pg MCHC (32.2-35.5) g/dl RDW Std Deviation (35.1-43.9) fL Plt Count (163-337) K/mm3 MPV (9.4-12.3) fl Neut % (Auto) (34.0-67.9) % Lymph % (Auto) (21.8-53.1) % [place] % (Auto) (5.3-12.2) % Eos % (Auto) (0.8-7.0) Baso % (Auto) (0.1-1.2) % Neut # (Auto) (1.78-5.38) K/mm3 Lymph # (Auto) (1.32-3.57) K/mm3 [place] # (Auto) (0.30-0.82) K/mm3 Eos # (Auto) (0.04-0.54) K/mm3 Baso # (Auto) (0.01-0.08) K/mm3 PT (9.5-12.1) SECONDS INR APTT (24-31) SECONDS Sodium 140 (136-145) mEq/L Potassium 4.0 (3.5-5.1) mEq/L Chloride 103 (98-107) mEq/L Carbon Dioxide 28 (21-32) mEq/L Anion Gap 13.0 (5-15) BUN 13 (7-18) mg/dL Creatinine 0.9 (0.7-1.3) mg/dL Est Cr Clr Drug Dosing 77.06 mL/min Estimated GFR (MDRD) > 60 (>60) mL/min BUN/Creatinine Ratio 14.4 (14-18) Glucose 99 (80-115) mg/dL POC Glucose (80-115) mg/dL Calcium 8.9 (8.5-10.1) mg/dL Magnesium 1.9 (1.8-2.4) mg/dl Total Bilirubin 0.6 (0.2-1.0) mg/dL AST 17 (15-37) U/L ALT 22 (16-63) U/L Alkaline Phosphatase 34 L (46-116) U/L Troponin I < 0.017 (0.00-0.056) ng/mL Total Protein 7.0 (6.4-8.2) g/dl Albumin 3.3 L (3.4-5.0) g/dl Globulin 3.7 gm/dL Albumin/Globulin Ratio 0.9 L (1-2) Urine Color Yellow (Yellow) Urine Appearance Clear (Clear) Urine pH 6.5 (5.0-8.0) Ur Specific [place] 1.020 (1.005-1.030) Urine Protein Negative (Negative) Urine Glucose (UA) 2+ H (Negative) Urine Ketones Negative (Negative) Urine Occult Blood Negative (Negative) Urine Nitrite Negative (Negative) Urine Bilirubin Negative (Negative) Urine Urobilinogen 0.2 (0.2-1.0) Ur Leukocyte Esterase Negative (Negative) Urine RBC Not seen (0-5) /hpf Urine WBC 0-5 (0-5) /hpf Ur Epithelial Cells Not seen (0-5) /hpf Urine Bacteria Not seen (FEW) /hpf Urine Mucus Not seen (FEW) /hpf Ethyl Alcohol 0.00 (0.00) gm% Meds: Medications Discontinued Medications Generic Name Dose Route Start Last Admin Trade Name Freq PRN Reason Stop Dose Admin Sodium Chloride 1,000 mls @ 125 mls/hr 12/05/17 11:02 12/05/17 11:24 Normal Saline IV 12/05/17 19:01 125 mls/hr ONETIME ONE Administration Sodium Chloride 10 ml 12/05/17 10:56 12/05/17 11:25 Saline Flush FLUSH 10 ml ASDIRECTED PRN Administration Keep Vein Open - Radiology Interpretation Free Text/Narrative:: Head CT Technique: Multiple axial sections through the brain were obtained. Intravenous contrast was not utilized. Comparison: No previous intracranial imaging. Findings: Ventricles along the basal cisterns and sulci are of the convexities are mildly prominent. No abnormal parenchymal densities are seen. No evidence of intracranial hemorrhage. No midline shift or mass effect is seen. Bone window settings were reviewed which shows no acute calvarial abnormality. Visualized sinuses are clear. Minimal atherosclerotic calcification is seen within the vertebral vessels and carotid siphon. Impression: 1. Nothing acute is identified on noncontrast head CT exam. chest xray 1view shows no acute intrathoracic process. - Re-Assessments/Exams Free Text/Narrative Re-Assessment/Exam: 12/05/17 11:14 bedside blood sugar is 103. 12/05/17 13:25 case was discussed with Dr. Rodriguez. [place] unlikely to be a stroke. NIHSS is negative other then minor decreased sensation to the right cheek. Likely neuropathy or mcleod's palsy. Reviewed the labs, ekg and imaging with the patient. Will discharge home with close follow-up in the clinic. Discharge instructions as documented . Departure - Departure Time of Disposition: 13:28 Disposition: Home, Self-Care 01 Condition: Fair Clinical Impression: Neuropathy - Discharge Information Instructions: Neuropathic Pain Referrals: Homer Galloway MD [Primary Care Provider] - Forms: ED Department Discharge Additional Instructions: Follow-up with your primary care provider Saturday as planned. over the weekend rest and make sure you're drinking plenty of fluids. Please return to the ER if your symptoms change or worsen.
--- NOTE | 2017-12-05 11:17 | CT ---
Head CT Technique: Multiple axial sections through the brain were obtained. Intravenous contrast was not utilized. Comparison: No previous intracranial imaging. Findings: Ventricles along the basal cisterns and sulci are of the convexities are mildly prominent. No abnormal parenchymal densities are seen. No evidence of intracranial hemorrhage. No midline shift or mass effect is seen. Bone window settings were reviewed which shows no acute calvarial abnormality. Visualized sinuses are clear. Minimal atherosclerotic calcification is seen within the vertebral vessels and carotid siphon. Impression: 1. Nothing acute is identified on noncontrast head CT exam. Diagnostic code #2
--- NOTE | 2017-12-05 12:45 | CR ---
Chest: Portable view of the chest was obtained. Comparison: Prior chest x-ray of 10/19/16. Heart size and mediastinum are normal. Lungs are clear without acute parenchymal change. Bony structures are grossly intact. Impression: 1. Nothing acute is seen on portable chest x-ray. Diagnostic code #1
== END 2017-12-05 13:50 | disposition home or self-care (01) ==
LOC: JD.ED 10:44
DX: E11.40 Type 2 diabetes mellitus with diabetic neuropathy, unspecified (principal); I48.91 Unspecified atrial fibrillation; E78.00 Pure hypercholesterolemia, unspecified; I10 Essential (primary) hypertension; J45.909 Unspecified asthma, uncomplicated; E11.9 Type 2 diabetes mellitus without complications; Z79.84 Long term (current) use of oral hypoglycemic drugs; Z79.01 Long term (current) use of anticoagulants; Z79.82 Long term (current) use of aspirin; Z79.899 Other long term (current) drug therapy; Z91.040 Latex allergy status; Z91.010 Allergy to peanuts
CPT/HCPCS: 36415; 70450; 71045; 80053; 81001; 82962; 83735; 84484; 85025; 85610; 85730; 93005; 96360; 96361; 99285; G0480; J7040; J7050

== ENCOUNTER 2018-12-02 06:02 | Emergency (ER) | payer BC, MEDICARE ==
[2018-12-02 06:11] VITALS: BP 147/67
--- NOTE | 2018-12-02 06:26 | EDM.PDOC ---
ED HPI GENERAL MEDICAL PROBLEM - General Chief Complaint: Lower Extremity Injury/Pain Stated Complaint: KNEE PAIN Time Seen by Provider: 12/02/18 06:11 Source of Information: Reports: Patient, RN Notes Reviewed History Limitations: Reports: No Limitations - History of Present Illness INITIAL COMMENTS - FREE TEXT/NARRATIVE: The patient states that he got into a pickup truck yesterday, and as he was doing so, pushing up with his left lower extremity, he felt pain in the back of his left knee, which only got worse overnight. This morning, he can't bend his left knee due to pain. No prior similar symptoms. The patient's PCP is Dr. Homer Galloway. His Cardiology contact is ANTONIA Jones. His Oncologist is Dr. Shai Miller. Left Knee Pain Score (Numeric/FACES): 10 - Related Data Allergies Allergy/AdvReac Type Severity Reaction Status Date / Time acetaminophen [From Tylenol] Allergy Nausea Verified 12/02/18 06:08 amoxicillin Allergy Other Verified 12/02/18 06:08 codeine Allergy Other Verified 12/02/18 06:08 dextromethorphan Allergy Other Verified 12/02/18 06:08 doxylamine [From NyQuil] Allergy Other Verified 12/02/18 06:08 ibuprofen Allergy Other Verified 12/02/18 06:08 [From DayQuil Sinus Pressure/Pain] latex Allergy Hives Verified 12/02/18 06:08 Latex, Natural Rubber Allergy Other Verified 12/02/18 06:08 peanut Allergy Hives Verified 12/02/18 06:08 pseudoephedrine Allergy Other Verified 12/02/18 06:08 Gmzyevh-Mim-Rwm Reductase Allergy Other Verified 12/02/18 06:08 Inhibitor Home Meds: Home Meds Albuterol [Ventolin HFA] 2 puff INH Q4H PRN 10/19/16 [History] Aspirin 81 mg PO DAILY 10/19/16 [History] Fluticasone/Salmeterol [Advair Diskus 250-50] 1 puff INH BID 10/19/16 [History] Metoprolol Succinate 25 mg PO DAILY 10/19/16 [History] Mometasone Furoate [Nasonex [place]] 1 spray BRIDGER DAILY 10/19/16 [History] Multivitamin [Multiple Vitamins] 1 each PO DAILY 10/19/16 [History] Pantoprazole [ProTONIX] 40 mg PO DAILY 10/19/16 [History] Valsartan/Hydrochlorothiazide [Diovan Hct 160-12.5 mg Tab] 1 each PO DAILY 10/19 [History] atorvaSTATin [Lipitor] 20 mg PO MOFR 10/19/16 [History] metFORMIN HCl [Metformin HCl] 1,000 mg PO BID 10/19/16 [History] predniSONE 10 mg PO BEDTIME 10/19/16 [History] predniSONE 20 mg PO WITHBREAKFAST 10/19/16 [History] Orphenadrine [Norflex] 1 tab PO Q12H PRN #14 tab.er 12/02/18 [Rx] Past Medical History HEENT History: Reports: Impaired Vision Other HEENT History: wears glasses Cardiovascular History: Reports: Afib (paroxysmal), CAD, High Cholesterol, Hypertension Respiratory History: Reports: Sleep Apnea Musculoskeletal History: Reports: Other (See Below) (Polymyalgia rheumatica) Endocrine/Metabolic History: Reports: Diabetes, Type II - Past Surgical History HEENT Surgical History: Reports: Naso-Sinus Surgery, Oral Surgery (wisdom teeth extraction), Tonsillectomy Cardiovascular Surgical History: Reports: Coronary Artery Stent (x 1) GI Surgical History: Reports: Cholecystectomy (1980s) Social & Family History - Family History Family Medical History: Noncontributory - Tobacco Use Smoking Status *Q: Never Smoker Tobacco Use Within Last Twelve Months: Smokeless Tobacco (Chewed for 5 years in the 1970s) - Caffeine Use Caffeine Use: Reports: Soda - Alcohol Use Alcohol Use History: No - Recreational Drug Use Recreational Drug Use: No - Living Situation & Occupation Living situation: Reports: , with Spouse 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 ED EXAM, GENERAL - Physical Exam Exam: See Below Exam Limited By: No Limitations General Appearance: Alert, WD/WN, No Apparent Distress Extremities: Other (No visible abnormality to the left lower extremity, when compared to the right, such as swelling, erythema, ecchymosis, or abrasion. No popliteal bulging. No tenderness to palpation of the posterior knee. No tenderness to palpation of the quadriceps tendon, patellar tendon, or patella. No tenderness to palpation of the lateral or medial knee, and no pain or laxity with stressing the lateral or medial collateral ligaments. Anterior and posterior drawer sign are absent. Pain is reproduced by palpating the posterolateral distal thigh and proximal calf musculature. Neurovascular status of the left lower extremity is intact.) Course - Vital Signs Last Recorded V/S: Last Vital Signs Temp 36.1 C 12/02/18 06:08 Pulse 74 12/02/18 06:08 Resp 18 12/02/18 06:08 BP 147/67 H 12/02/18 06:08 Pulse Ox 95 12/02/18 06:08 - Orders/Labs/Meds Meds: Medications Discontinued Medications Generic Name Dose Route Start Last Admin Trade Name Freq PRN Reason Stop Dose Admin Orphenadrine Citrate 100 mg 12/02/18 06:32 Norflex PO 12/02/18 06:33 ONETIME STA - Re-Assessments/Exams Free Text/Narrative Re-Assessment/Exam: 12/02/18 06:33 I was initially concerned that the patient might have a Roberts's cyst, however, there are no findings on physical examination consistent with that. He has reproducible tenderness to palpation of the lateral aspects of his hamstring and calf muscles, and there is no tenderness or bulging to his posterior knee. The patient will be started on Norflex, and I will prescribe the same. Since he is on Xarelto, a DVT is a not of concern, however, he cannot also take ibuprofen. He may take Tylenol for discomfort. Departure - Departure Time of Disposition: 06:34 Disposition: Home, Self-Care 01 Condition: Good Clinical Impression: Muscle strain of left lower extremity - Discharge Information *PRESCRIPTION DRUG MONITORING PROGRAM REVIEWED*: Not Applicable *COPY OF PRESCRIPTION DRUG MONITORING REPORT IN PATIENT NATE: Not Applicable Referrals: Homer Galloway MD [Primary Care Provider] - Vivienne Martins PA-C [Ordering Only Provider] - Shai Miller MD [Ordering Only Provider] - Forms: ED Department Discharge Additional Instructions: You were seen in the emergency room for posterior left lower extremity pain after getting into a pickup yesterday. Based on your history and physical examination, you had strained some muscles in your left lower extremity. Your examination is not consistent with either a Roberts's cyst or a DVT. You have been started on the muscle relaxer Norflex. A prescription for Norflex has been sent to the [facility], on [address]. Take one tablet of Norflex every 12 hours, starting this evening, Saturday, 2018, as prescribed. In addition to Norflex, you may safely take [id number] Tylenol. If your symptoms do not improve within the next few days, please follow-up with your PCP, Dr. Homer Galloway. If any other problems, please do not hesitate to return to the ER.
[2018-12-02] MEDS ORDERED: Orphenadrine 100 MG Tab.ER PO STA (06:32)
== END 2018-12-02 06:43 | disposition home or self-care (01) ==
LOC: JD.ED 06:02
DX: S86.912A Strain of unspecified muscle(s) and tendon(s) at lower leg level, left leg, initial encounter (principal); I25.10 Atherosclerotic heart disease of native coronary artery without angina pectoris; E78.00 Pure hypercholesterolemia, unspecified; I10 Essential (primary) hypertension; I48.91 Unspecified atrial fibrillation; E11.9 Type 2 diabetes mellitus without complications; Z88.1 Allergy status to other antibiotic agents; Z88.5 Allergy status to narcotic agent; Z88.8 Allergy status to other drugs, medicaments and biological substances; Z91.040 Latex allergy status; Z88.6 Allergy status to analgesic agent; Z91.010 Allergy to peanuts; Z79.899 Other long term (current) drug therapy; Z79.82 Long term (current) use of aspirin; Z79.84 Long term (current) use of oral hypoglycemic drugs; Z79.01 Long term (current) use of anticoagulants; X50.9XXA Other and unspecified overexertion or strenuous movements or postures, initial encounter
CPT/HCPCS: 99283; A9270

== ENCOUNTER 2022-05-14 03:12 | Emergency (ER) | payer MEDICARE, BC ==
[2022-05-14 03:27] VITALS: BP 176/72; PULSE 93
[2022-05-14 04:10] LABS: CORONAVIRUS COVID-19 NAA NEGATIVE (NEGATIVE)
== END 2022-05-14 04:54 | disposition home or self-care (01) ==
LOC: JD.ED 03:12
DX: J11.1 Influenza due to unidentified influenza virus with other respiratory manifestations (principal); I25.10 Atherosclerotic heart disease of native coronary artery without angina pectoris; E78.00 Pure hypercholesterolemia, unspecified; I10 Essential (primary) hypertension; E11.9 Type 2 diabetes mellitus without complications; Z88.6 Allergy status to analgesic agent; Z88.0 Allergy status to penicillin; Z88.5 Allergy status to narcotic agent; Z91.040 Latex allergy status; Z91.010 Allergy to peanuts; Z79.899 Other long term (current) drug therapy; Z79.82 Long term (current) use of aspirin; Z90.49 Acquired absence of other specified parts of digestive tract; Z20.822 Contact with and (suspected) exposure to COVID-19
CPT/HCPCS: 0241U; 36415; 71045; 80053; 84484; 85025; 85379; 93005; 99285

== ENCOUNTER 2023-08-12 08:10 | Day surgery (SDC) | payer MEDICARE, BC ==
[~2023-08-12 08:10] MED LIST: HYDROmorphone 0.5 MG/0.5 ML Syringe IVPUSH PRN; Ondansetron 4 MG/2 ML SDV IVPUSH PRN; Sodium Chloride 0.9% 10 ML Syringe FLUSH PRN; Sodium Chloride 0.9% 10 ML Syringe FLUSH SCH; fentaNYL 100 MCG/2 ML SDV IVPUSH PRN
[2023-08-12] MEDS: Lactated Ringers 1,000 ML IV SCH (08:20)
[2023-08-12] MEDS ORDERED: Propofol 200 MG/20 ML SDV ONE ×3 (08:59→10:07)
[2023-08-12] MEDS ORDERED: Midazolam 1 MG/ML 2 ML SDV ONE (09:00)
[2023-08-12] MEDS ORDERED: fentaNYL 100 MCG/2 ML SDV ONE (09:00)
[2023-08-12 11:47] VITALS: BP 122/70; PULSE 68
== END 2023-08-12 11:15 | disposition home or self-care (01) ==
LOC: JD.SDS 08:10
PROVIDERS: ATTEND Surgery
DX: K31.7 Polyp of stomach and duodenum (principal); K29.50 Unspecified chronic gastritis without bleeding; D12.2 Benign neoplasm of ascending colon; D12.3 Benign neoplasm of transverse colon; D12.8 Benign neoplasm of rectum; K63.5 Polyp of colon; K57.30 Diverticulosis of large intestine without perforation or abscess without bleeding; K64.8 Other hemorrhoids; E11.65 Type 2 diabetes mellitus with hyperglycemia; I10 Essential (primary) hypertension; E78.5 Hyperlipidemia, unspecified; D50.9 Iron deficiency anemia, unspecified; K29.80 Duodenitis without bleeding; Z88.0 Allergy status to penicillin; Z88.5 Allergy status to narcotic agent; Z88.8 Allergy status to other drugs, medicaments and biological substances; Z88.6 Allergy status to analgesic agent; Z91.040 Latex allergy status; Z79.01 Long term (current) use of anticoagulants; Z87.891 Personal history of nicotine dependence; Z79.899 Other long term (current) drug therapy
CPT/HCPCS: 43239; 45380; J2250; J2704; J3010; J7120; 00813; 99211

== ENCOUNTER 2024-01-01 11:22 | Emergency (ER) | payer MEDICARE, BC ==
[2024-01-01 11:36] VITALS: BP 156/64; PULSE 95
[2024-01-01 11:41] LABS: BASOPHILS ABSOLUTE AUTO 0.1 K/mm3 (0.0-0.2); BASOPHILS PERCENT AUTO 0.5 % (0.0-1.0); EOSINOPHILS ABSOLUTE AUTO 0.2 K/mm3 (0.0-0.4); EOSINOPHILS PERCENT AUTO 1.7 % (0.0-6.0); HEMATOCRIT 38.8 % (42.0-52.0); HEMOGLOBIN 12.7 gm/dl (14.0-18.0); IMMATURE GRAN ABSOLUTE AUTO 0.04 K/mm3 (0.00-0.05); IMMATURE GRAN PERCENT AUTO 0.4 % (0.0-0.4); LYMPHOCYTES ABSOLUTE AUTO 1.3 K/mm3 (1.0-4.8); LYMPHOCYTES PERCENT AUTO 12.1 % (24.0-44.0); MEAN CORPUSCULAR HEMOGLOBIN 31.1 pg (28.0-32.0); MEAN CORPUSCULAR HGB CONC 32.7 g/dl (32.0-36.0); MEAN CORPUSCULAR VOLUME 94.9 fl (83.0-99.0); MEAN PLATELET VOLUME 8.9 fl (9.4-12.4); NEUTROPHILS ABSOLUTE AUTO 8.2 K/mm3 (1.8-7.7); NEUTROPHILS PERCENT AUTO 76.3 % (41.0-71.0); PLATELET COUNT,PLT 332 K/mm3 (150-400); RED BLOOD CELL COUNT 4.09 M/mm3 (4.52-5.90); WHITE BLOOD CELL COUNT,WBC 10.71 K/mm3 (3.9-11.3)
[2024-01-01] MEDS: Aspirin 81 MG Tab.Chew PO ONE (11:47)
[2024-01-01 12:12] LABS: INR 1.33; PROTHROMBIN TIME 13.8 SECONDS (9.7-12.0)
[2024-01-01 12:14] LABS: PTT,PARTIAL THROMBOPLSTIN TIME 30.6 SECONDS (21.7-31.4)
[2024-01-01 12:15] LABS: A/G RATIO 1.2 (1-2); ALBUMIN 3.9 g/dl (3.4-5.0); ANION GAP 14.3 (5-15); BILIRUBIN TOTAL 0.9 mg/dL (0.2-1.0); BUN/CREATININE RATIO 14.3 (14-18); CALCIUM 9.8 mg/dL (8.5-10.1); CREATININE 1.4 mg/dL (0.7-1.3); EST CRCL DRUG DOSING (CG) 46.99 mL/min; MAGNESIUM 1.7 mg/dL (1.8-2.4); POTASSIUM,K 3.3 mEq/L (3.5-5.1); PROTEIN TOTAL,TP 7.3 g/dl (6.4-8.2)
[2024-01-01] MEDS: Sodium Chloride 0.9% 1,000 ML IV SCH (12:20)
[2024-01-01] MEDS ORDERED: Magnesium Sulfate/Water 2 GM in Premix Bag 1 BAG IV SCH (12:30)
[2024-01-01] MEDS: Potassium Chloride 20 MEQ Tab.ER PO ONE (13:11)
[2024-01-01] MEDS: Magnesium Sulfate/Water 2 GM in Premix Bag 1 BAG IV ONE (13:12)
== END 2024-01-01 17:49 ==
LOC: JD.ED 11:22
DX: I25.118 Atherosclerotic heart disease of native coronary artery with other forms of angina pectoris (principal); I48.91 Unspecified atrial fibrillation; E78.00 Pure hypercholesterolemia, unspecified; I10 Essential (primary) hypertension; K21.9 Gastro-esophageal reflux disease without esophagitis; E11.9 Type 2 diabetes mellitus without complications; Z95.5 Presence of coronary angioplasty implant and graft; Z79.899 Other long term (current) drug therapy; Z79.82 Long term (current) use of aspirin; Z79.01 Long term (current) use of anticoagulants; Z79.84 Long term (current) use of oral hypoglycemic drugs; Z88.8 Allergy status to other drugs, medicaments and biological substances; Z91.040 Latex allergy status; Z91.010 Allergy to peanuts; Z88.6 Allergy status to analgesic agent; Z88.5 Allergy status to narcotic agent; Z88.0 Allergy status to penicillin; Z88.1 Allergy status to other antibiotic agents
CPT/HCPCS: 36415; 71045; 80053; 83735; 83880; 84484; 85025; 85379; 85610; 85730; 93005; 96361; 96365; 96366; 99285; A9270; J3475; J7030; 93010

== ENCOUNTER 2025-02-09 08:17 | Day surgery (SDC) | payer MEDICARE, BC ==
[~2025-02-09 08:17] MED LIST changes: -HYDROmorphone 0.5 MG/0.5 ML Syringe IVPUSH PRN; -Ondansetron 4 MG/2 ML SDV IVPUSH PRN; -fentaNYL 100 MCG/2 ML SDV IVPUSH PRN
[2025-02-09] MEDS: Lactated Ringers 1,000 ML IV SCH (09:05)
[2025-02-09] MEDS ORDERED: Propofol 200 MG/20 ML SDV ONE (10:50)
[2025-02-09 12:10] VITALS: BP 113/68; PULSE 65
== END 2025-02-09 11:45 | disposition home or self-care (01) ==
LOC: JD.SDS 08:17
PROVIDERS: ATTEND Surgery
DX: K57.30 Diverticulosis of large intestine without perforation or abscess without bleeding (principal); K31.7 Polyp of stomach and duodenum; K44.9 Diaphragmatic hernia without obstruction or gangrene; I10 Essential (primary) hypertension; I48.91 Unspecified atrial fibrillation; E11.9 Type 2 diabetes mellitus without complications; K21.9 Gastro-esophageal reflux disease without esophagitis; K62.5 Hemorrhage of anus and rectum; Z79.01 Long term (current) use of anticoagulants; Z79.899 Other long term (current) drug therapy
CPT/HCPCS: 43239; 45378; J2003; J2704; J7120; 00813

== ENCOUNTER 2025-02-15 23:26 | Emergency (ER) | payer MEDICARE, BC ==
[2025-02-16] MEDS: Ondansetron 4 MG Tab.DIS PO ONE (00:50)
[2025-02-16 02:14] VITALS: BP 112/53; PULSE 61
== END 2025-02-16 01:37 | disposition home or self-care (01) ==
LOC: JD.ED 23:26 → MERGE 23:26 → JD.ED 02-16 01:37
DX: H81.13 Benign paroxysmal vertigo, bilateral (principal); D50.8 Other iron deficiency anemias; Z88.6 Allergy status to analgesic agent
CPT/HCPCS: 70450; 99284; A9270